=== PATIENT | male | born 1995 | race Caucasian/White ===

== ENCOUNTER → 2020-05-24 | Outpatient (CLI) | payer BC ==
[~2020-05-24] VITALS: Ht 185.4 cm; Wt 79.8 kg
[~2020-05-24] MED LIST: SINCALIDE 1.6 MCG in IV NORMAL SALINE 50ML 30 ML IV ONE
--- NOTE | 2020-05-24 08:53 | RAD ---
Examination: ABDOMEN LTD History: Reason: EPIGASTRIC PAIN, N/V / Spl. Instructions: / History: Comparison/Correlation: None Findings: Right upper quadrant ultrasound exam was performed. Liver echotexture is normal. Portal venous flow is normal. Common bile duct is unremarkable. Gallbladder is normal. No cholelithiasis or findings of cholecystitis. Right kidney measures 10.3 cm longitudinal. No right hydronephrosis. Normal right renal echotexture. Proximal pancreas is normal. Distal pancreas is obscured by bowel gas. Inferior vena cava is unremarkable. No right upper quadrant ascites. Impression: Normal right upper quadrant ultrasound exam. Electronically signed by: Gerhard Cuello MD (05/24/2020 8:50 AM) [id number]
--- NOTE | 2020-05-24 11:00 | RAD ---
Examination: NM HEPATOBILIARY SCAN W PHARM History: Abdominal pain, nausea and vomiting: Comparison/Correlation: None Findings: 5.5 mCi technetium 99m Choletec was administered intravenously for purposes of hepatobiliary scintigraphy. Uptake of tracer by liver is normal. Radiotracer within the small bowel is seen by 5 minutes. Gallbladder is seen at approximately 5 minutes. After 60 minutes, 1.6 mcg of CCK was administered. Gallbladder ejection fraction of 43 percent is seen. No biliary dilatation. Impression: Gallbladder ejection fraction is at the lower limits of normal. No definite evidence of cholecystitis. Electronically signed by: Gerhard Cuello MD (05/24/2020 10:57 AM) [id number]
== END | disposition home or self-care (01) ==
LOC: NM 07:46
PROVIDERS: ATTEND Internal Medicine Gastroenterology
DX: R10.13 Epigastric pain (principal); R11.2 Nausea with vomiting, unspecified
CPT/HCPCS: 76705; 78227; A9537; J2805

== ENCOUNTER → 2020-05-29 | Outpatient (CLI) | payer BC ==
--- NOTE | 2020-05-29 12:47 | RAD ---
EXAM: Nuclear gastric emptying scan. HISTORY: Epigastric pain, nausea/vomiting, early satiety. COMPARISON: None. TECHNIQUE: Serial static images were obtained over the stomach following oral administration of 2 mCi of 99m-Tc sulfur colloid in an egg based meal. FINDINGS: The stomach appears normal in contour. There is clearance of activity into the small bowel. The remaining fraction of gastric activity is as follows. 1 hour 40% (normal range 34.8-91%) 2 hour 12% (normal range 2.7-60%) 3 hour 4% (normal range 0.5-28%) 4 hour 0% (normal range 0-10%) IMPRESSION: 1. Normal gastric emptying. Electronically signed by: Jojo Max MD (05/29/2020 12:44 PM) [id number]
== END ==
LOC: EDUNIT# 08:00 → NM 08:02
PROVIDERS: ATTEND Internal Medicine Gastroenterology
DX: R10.13 Epigastric pain (principal); R11.2 Nausea with vomiting, unspecified
CPT/HCPCS: 78264; A9541